=== PATIENT | female | born 1965 | race African-American/Black ===

== ENCOUNTER 2020-04-21 18:06 | Emergency (ER) | payer SELFPAY ==
[~2020-04-21] VITALS: Ht 162.6 cm; Wt 73.4 kg
[2020-04-21 18:09] VITALS: BP 147/96
[2020-04-21] MEDS ORDERED: VISCOUS LIDOCAINE 2% 15 ML UDC PO STA (19:10)
[2020-04-21] MEDS ORDERED: MAGNESIUM/ALUMINUM HYDROXIDE/SIMETHICONE 30ML UDC PO STA (19:10)
[2020-04-21] MEDS ORDERED: ASPIRIN 81MG TABLET PO ONE (19:15)
[2020-04-21 19:34] LABS: BASOPHILS % 0.6 % (0.0-2.0); EOSINOPHILS % 6.2 % (0.0-5.0); HEMATOCRIT. 38.9 % (36.0-48.0); HEMOGLOBIN. 13.4 g/dL (12.0-16.0); LYMPHOCYTES % 37.3 % (20.0-50.0); MEAN CORPUSCULAR HEMOGLOBIN 31.9 pg (28.0-32.0); MEAN CORPUSCULAR VOLUME 92.5 fL (81.0-99.0); MEAN PLATELET VOLUME 7.9 fl (7.4-10.4); MONOCYTES % 4.8 % (2.0-8.0); NEUTROPHILS % 51.1 % (40.0-76.0); PLATELET 256 x1000/uL (130-400); RED BLOOD CELL COUNT 4.21 mill/uL (4.2-5.4); RED CELL DISTRIBUTION WIDTH 13.5 % (11.6-14.6)
[2020-04-21 19:35] LABS: CHLORIDE 107 mEq/L (98-107)
[2020-04-21 19:49] LABS: CLARITY URINE CLEAR (CLEAR); COLOR URINE YELLOW (YELLOW); KETONES URINE NEGATIVE (NEGATIVE); LEUKOCYTE ESTERASE URINE NEGATIVE (NEGATIVE); NITRITE URINE NEGATIVE (NEGATIVE); OCCULT BLOOD URINE NEGATIVE (NEGATIVE); PH URINE 6.5 (4.5-8.0); PROTEIN URINE NEGATIVE (NEGATIVE); SPECIFIC GRAVITY URINE 1.006 (1.005-1.030); UROBILINOGEN URINE 0.2 E.U./dL (0.2-1.0)
== END 2020-04-21 23:23 | disposition home or self-care (01) ==
LOC: ER 18:06
DX: R07.89 Other chest pain (principal); Z98.890 Other specified postprocedural states; Z91.048 Other nonmedicinal substance allergy status
CPT/HCPCS: 36415; 71045; 80053; 81003; 83880; 84484; 85025; 85730; 93005; 99285; Z7610